=== PATIENT | female | born 1970 | race Caucasian/White ===

== ENCOUNTER 2021-10-21 11:31 | Emergency (ER) | payer OTHER, SELFPAY ==
[2021-10-21 11:41] VITALS: BP 120/70; PULSE 81; RESP 18; TEMP 36.2; O2SAT 100; BMI 23.5
--- NOTE | 2021-10-21 12:04 | ED.CHESTPAIN ---
HPI - Chest Pain General Chief Complaint: Chest Pain Stated Complaint: Chest pain Time Seen by Provider: 10/21/21 11:38 History of Present Illness HPI narrative: This 51-year-old female comes in reporting 2 days of intermittent brief chest discomfort in the left anterior chest. She states that this pain comes and goes randomly and is not related to exertion or activity. She states that it lasts about a minute and then resolves. She does not have any nausea, vomiting, lightheadedness, shortness of breath, or diaphoresis. She does not report any exercise intolerance. She does not have any cardiac risk factors. Related Data Home Medications Medication Instructions Recorded Confirmed estradiol 0.075 mg/24 hr 10/21/21 semiweekly transdermal patch Allergies Allergy/AdvReac Type Severity Reaction Status Date / Time Sulfa (Sulfonamide Allergy Verified 10/21/21 11:41 Antibiotics) Review of Systems Status of ROS Reports: 10 or more systems reviewed and unremarkable except as noted in History and below Narrative Constitutional: No fevers, no weight gain or loss. Eyes: No discharge. No vision changes. HENT: No congestion, no sore throat, no ear pain. Cardiovascular: No palpitations. Brief chest discomfort as described above. Respiratory: No shortness of breath, no wheezes, no cough. Gastrointestinal: No abdominal pain, no vomiting, no diarrhea. Genitourinary: No dysuria, no hematuria. Musculoskeletal: Normal range of motion. Skin: No rashes, no pruritis. Neurological: No dizziness, weakness, sensory change, speech change. Endo/Heme/Allergies: No bruising or bleeding. No polydipsia. Pysch: no suicidality, no anxiety, no insomnia. All other systems reviewed and are negative. PFSH PFS Social History Smoking Status: Never smoker Do you use any of these nicotine containing products: None How often do you have a drink containing alcohol: monthly or less AUDIT-C Alcohol total score: 1 Non-prescribed substance use: denies use Exam Narrative Exam Narrative: Constitutional: Well-developed, well-nourished, no acute distress. HEENT: Normocephalic, atraumatic. Neck: Normal range of motion. Nontender. Supple. Heart: Regular. No murmurs. Normal rate. Intact distal pulses. Lungs: Clear to auscultation. No chest discomfort currently. No wheezes, rhonchi, or rales. Abdomen: Normal bowel sounds. Nontender. No rebound tenderness. Genitalia: Deferred. Back: No midline tenderness. Normal range of motion. Extremities: Normal range of motion. No injury. Skin: Intact. No rash. Warm. No erythema or pallor. Neurologic: No altered sensation. No weakness. Alert and oriented. Psychiatric: No suicidality. No anxiety or depression. No insomnia. Nursing notes and vitals signs are reviewed. Const Vital Signs, click to edit/add: Vital Signs - 24 hr 10/21/21 11:41 Temperature 97.2 F L Pulse Rate [Left Pulse Oximeter] 81 Respiratory Rate 18 Blood Pressure [Left Upper Arm] 120/70 Pulse Oximetry 100 Oxygen Delivery Method Room Air Course Vital Signs Vital signs: Initial Vital Signs Temperature 97.2 F L 10/21/21 11:41 Temperature Source Temporal Artery Scan 10/21/21 11:41 Pulse Rate 81 10/21/21 11:41 Respiratory Rate 18 10/21/21 11:41 Blood Pressure 120/70 10/21/21 11:41 Blood Pressure Mean 86 10/21/21 11:41 Blood Pressure Position Sitting 10/21/21 11:41 Pulse Oximetry 100 10/21/21 11:41 Oxygen Delivery Method 10/21/21 11:41 Vital Signs Temperature 97.2 F L 10/21/21 11:41 Pulse Rate 81 10/21/21 11:41 Respiratory Rate 18 10/21/21 11:41 Blood Pressure 120/70 10/21/21 11:41 Pulse Oximetry 100 10/21/21 11:41 Oxygen Delivery Method 10/21/21 11:41 Temperature 97.2 F L 10/21/21 11:41 Pulse Rate 81 10/21/21 11:41 Respiratory Rate 18 10/21/21 11:41 Blood Pressure 120/70 10/21/21 11:41 Pulse Oximetry 100 10/21/21 11:41 Oxygen Delivery Method 10/21/21 11:41 MDM - Chest Pain MDM Narrative Medical decision making narrative: This patient comes in reporting brief episodes of chest discomfort. These are not reproducible with deep breath or palpation or certain movements. She does not have any cardiac risk factors. And she has good exercise tolerance without symptoms. Her EKG today shows normal sinus rhythm and no sign of ST or T-wave abnormalities. I discussed further her options to evaluate this including labs and imaging studies. In a process of shared decision making she declined these for now. She is sufficiently reassured with the EKG results along with vital signs and exam results. These brief episodes of pain are more likely nerve mediated and not likely related to heart or lungs. ECG Data Attestation: I personally reviewed and interpreted this ECG as follows: Interpretation: Normal sinus rhythm. Rate is 70 beats per minute. There are no ST or T-wave abnormalities. Discharge Plan Discharge Clinical Impression: Atypical chest pain Patient Disposition: Home, Self-Care Condition: Stable Instructions: Noncardiac Chest Pain (ED) Additional Instructions: Continue current plans. Follow up with MD or return if worsening. Prescriptions: No Action estradiol 0.075 mg/24 hr patch semiweekly Label Comments: APPLY 1 PATCH TOPICALLY TO THE SKIN 2 TIMES A WEEK DIRECTED Follow Up/Referrals: Provider,Not a Local [Primary Care Provider] - Stand Alone Forms: [facility] [employer] Info Instructions
== END 2021-10-21 12:13 | disposition home or self-care (01) ==
PROVIDERS: Emergency Provider Emergency Medicine Emergency Medical Services
DX: R07.9 Chest pain, unspecified (principal)
CPT/HCPCS: 93005; 99283; 99284